=== PATIENT | male | born 1970 | race Caucasian/White ===

== ENCOUNTER 2017-10-02 11:23 | Inpatient (IN) | payer OTHER ==
[2017-10-02 12:28] LABS: ADD MAN DIFF? NO
[2017-10-02 12:31] LABS: BASOPHILS % 0.4 % (0.0-2.0); EOSINOPHILS # 0.3 10^3/ul (0.0-0.5); EOSINOPHILS % 3.9 % (0.0-7.0); HEMATOCRIT 30.2 % (42.0-52.0); HEMOGLOBIN 9.7 g/dl (14.0-18.0); LYMPHOCYTES % 13.6 % (15.0-51.0); MEAN CORPUSCULAR HEMOGLOBIN 29.3 pg (29.0-33.0); MEAN CORPUSCULAR HGB CONC 32.1 g/dl (32.0-37.0); MEAN CORPUSCULAR VOLUME 91.2 fl (82.0-101.0); MEAN PLATELET VOLUME 10.2 fl (7.4-10.4); MONOCYTE # 0.6 10^3/ul (0.3-0.9); MONOCYTES % 8.3 % (0.0-11.0); NEUTROPHIL # 5.2 10^3/ul (1.6-7.5); NEUTROPHILS % 73.7 % (39.0-77.0); PLATELET COUNT 269 10^3/UL (140-415); RED BLOOD COUNT 3.31 10^6/ul (4.70-6.10)
[2017-10-02] MEDS: NITROGLYCERIN (SL) 0.4 MG TAB SL (12:38)
[2017-10-02] MEDS: ASPIRIN 81 MG TAB PO (12:38)
[2017-10-02] MEDS: FUROSEMIDE 40 MG INJ IV ×2 (12:38→18:40)
[2017-10-02] MEDS: NITROGLYCERIN 2% 1 GM OINT PKT TD (12:39)
[2017-10-02 12:49] LABS: ANION GAP 12 (8-16); BLOOD UREA NITROGEN 37 mg/dl (7-20); CALCIUM 8.7 mg/dl (8.4-10.2); CARBON DIOXIDE 27 mmol/L (21-31); CHLORIDE 107 mmol/L (97-110); CREATININE 1.61 mg/dl (0.61-1.24); GLUCOSE 90 mg/dl (70-220); SODIUM 140 mmol/L (135-144)
[2017-10-02 13:03] LABS: TROPONIN-I 0.015 ng/ml (0.00-0.12)
[2017-10-02 13:07] LABS: POTASSIUM 6.2 mmol/L (3.5-5.1)
[2017-10-02] MEDS: CEFTRIAXONE 1 GM/50 ML (PMX) 50 ML IVPB (13:18)
[2017-10-02] MEDS: NA BICARBONATE 8.4% 50 ML SYG IV (13:20)
[2017-10-02] MEDS: AZITHROMYCIN 500MG/NS (PMX) 250 ML IV (13:23)
[2017-10-02] MEDS: ALBUTEROL 0.5% (NEB) 2.5 MG/0.5 ML AMP INH (13:37)
[2017-10-02 13:47] LABS: LACTIC ACID 0.9 mmol/L (0.5-2.0)
[2017-10-02 14:00] LABS: ALBUMIN 3.1 g/dl (3.3-4.9)
[2017-10-02] MEDS ORDERED: ACETAMINOPHEN 325 MG TAB PO (14:30)
[2017-10-02] MEDS ORDERED: ONDANSETRON 4 MG INJ IV (14:30)
[2017-10-02 14:38] LABS: B-TYPE NATRIURETIC PEPTIDE 15500 PG/ML (0-125)
[2017-10-02] MEDS: NA POLYST SULFON 15 GM/60 ML BTL PO (14:49)
[2017-10-02 15:06] LABS: ADD UMIC YES; UR ASCORBIC ACID NEGATIVE (NEGATIVE); UR BILIRUBIN (Dip) NEGATIVE (NEGATIVE); UR BLOOD (Dip) 1+ mg/dL (NEGATIVE); UR CLARITY CLEAR (CLEAR); UR COLOR YELLOW (YELLOW); UR GLUCOSE (Dip) 1+ mg/dL (NEGATIVE); UR KETONES (Dip) NEGATIVE (NEGATIVE); UR LEUKOCYTE ESTERASE (Dip) NEGATIVE Leu/ul (NEGATIVE); UR NITRITE (Dip) NEGATIVE (NEGATIVE); UR RBC 6 /HPF (0-5); UR SPECIFIC GRAVITY (Dip) 1.009 (1.003-1.030); UR TOTAL PROTEIN (Dip) 3+ mg/dl (NEGATIVE); UR UROBILINOGEN (Dip) NEGATIVE (NEGATIVE); UR WBC 0 /HPF (0-5)
[2017-10-02] MEDS ORDERED: NACL 0.9% 3 ML SYG IV (16:30)
[2017-10-02] MEDS ORDERED: DEXTROSE 50% 50 ML SYRINGE IV ×2 (17:00)
[2017-10-02] MEDS ORDERED: GLUCOSE GEL 15 GRAM TUBE BUCCAL (17:00)
[2017-10-02] MEDS ORDERED: GLUCAGON 1 MG INJ IM (17:00)
[2017-10-02] MEDS ORDERED: GLUCOSE GEL 15 GRAM TUBE PO ×2 (17:00)
[2017-10-02 17:43] LABS: LACTIC ACID 2.3 mmol/L (0.5-2.0)
[2017-10-02] MEDS: INSULIN ASPART [NOVOLOG] 3 ML PEN SC (18:05)
[2017-10-02 18:29] LABS: CREATINE KINASE 495 IU/L (23-200)
[2017-10-02 18:42] LABS: TROPONIN-I 0.016 ng/ml (0.00-0.12)
[2017-10-02 18:44] LABS: CK-MB 5.06 ng/ml (0.0-2.4)
[2017-10-02 20:54] LABS: LACTIC ACID 1.8 mmol/L (0.5-2.0)
[2017-10-02] MEDS: ATORVASTATIN 80 MG TAB PO (20:54)
[2017-10-02] MEDS: INSULIN GLARGINE [LANtus] 3 ML PEN SC (21:00)
[2017-10-02] MEDS: HEPARIN 5,000 UNIT/0.5 ML VIAL SC (22:15)
[2017-10-03 00:20] LABS: CREATINE KINASE 584 IU/L (23-200)
[2017-10-03 00:32] LABS: CK INDEX 0.7; TROPONIN-I 0.023 ng/ml (0.00-0.12)
[2017-10-03 00:34] LABS: CK-MB 4.25 ng/ml (0.0-2.4)
[2017-10-03 06:11] LABS: ADD MAN DIFF? NO
[2017-10-03 06:14] LABS: WHITE BLOOD COUNT 5.7 10^3/ul (4.8-10.8)
[2017-10-03 06:14] LABS: BASOPHILS % 0.5 % (0.0-2.0); EOSINOPHILS # 0.2 10^3/ul (0.0-0.5); EOSINOPHILS % 4.2 % (0.0-7.0); HEMATOCRIT 26.3 % (42.0-52.0); HEMOGLOBIN 8.6 g/dl (14.0-18.0); LYMPHOCYTES # 0.8 10^3/ul (0.8-2.9); LYMPHOCYTES % 14.5 % (15.0-51.0); MEAN CORPUSCULAR HEMOGLOBIN 29.9 pg (29.0-33.0); MEAN CORPUSCULAR HGB CONC 32.7 g/dl (32.0-37.0); MEAN CORPUSCULAR VOLUME 91.3 fl (82.0-101.0); MEAN PLATELET VOLUME 10.5 fl (7.4-10.4); MONOCYTE # 0.6 10^3/ul (0.3-0.9); MONOCYTES % 10.3 % (0.0-11.0); NEUTROPHILS % 70.1 % (39.0-77.0); PLATELET COUNT 228 10^3/UL (140-415); RED BLOOD COUNT 2.88 10^6/ul (4.70-6.10); RED CELL DISTRIBUTION WIDTH 13.2 % (11.5-14.5)
[2017-10-03 06:33] LABS: ANION GAP 12 (8-16); BLOOD UREA NITROGEN 38 mg/dl (7-20); CALCIUM 8.5 mg/dl (8.4-10.2); CARBON DIOXIDE 28 mmol/L (21-31); CHLORIDE 107 mmol/L (97-110); CREATININE 1.74 mg/dl (0.61-1.24); GLUCOSE 60 mg/dl (70-220); POTASSIUM 4.4 mmol/L (3.5-5.1); SODIUM 143 mmol/L (135-144)
[2017-10-03] MEDS: FUROSEMIDE 40 MG INJ IV ×2 (07:04→17:09)
[2017-10-03] MEDS: HEPARIN 5,000 UNIT/0.5 ML VIAL SC ×3 (07:12→22:07)
[2017-10-03] MEDS: INSULIN ASPART [NOVOLOG] 3 ML PEN SC ×4 (08:00→21:00)
[2017-10-03] MEDS: AMLODIPINE 5 MG TAB PO (08:47)
[2017-10-03] MEDS ORDERED: hydrALAzine 20 MG INJ (13:01)
[2017-10-03] MEDS: hydrALAzine 20 MG INJ IV (13:11)
[2017-10-03] MEDS ORDERED: INSULIN GLARGINE [LANtus] 3 ML PEN SC (20:00)
[2017-10-03] MEDS: ATORVASTATIN 80 MG TAB PO (21:04)
[2017-10-03] MEDS: ACETAMINOPHEN 325 MG TAB PO (21:58)
[2017-10-04] MEDS: FUROSEMIDE 40 MG INJ IV ×2 (06:33→17:25)
[2017-10-04] MEDS: HEPARIN 5,000 UNIT/0.5 ML VIAL SC ×3 (06:36→21:59)
[2017-10-04 06:43] LABS: ADD MAN DIFF? NO
[2017-10-04 06:47] LABS: WHITE BLOOD COUNT 4.5 10^3/ul (4.8-10.8)
[2017-10-04 06:47] LABS: BASOPHILS % 0.4 % (0.0-2.0); EOSINOPHILS # 0.4 10^3/ul (0.0-0.5); EOSINOPHILS % 8.2 % (0.0-7.0); HEMATOCRIT 27.6 % (42.0-52.0); LYMPHOCYTES # 0.8 10^3/ul (0.8-2.9); LYMPHOCYTES % 17.5 % (15.0-51.0); MEAN CORPUSCULAR HGB CONC 32.6 g/dl (32.0-37.0); MEAN PLATELET VOLUME 10.6 fl (7.4-10.4); MONOCYTE # 0.4 10^3/ul (0.3-0.9); MONOCYTES % 9.5 % (0.0-11.0); NEUTROPHIL # 2.9 10^3/ul (1.6-7.5); NEUTROPHILS % 64.2 % (39.0-77.0); PLATELET COUNT 226 10^3/UL (140-415); RED CELL DISTRIBUTION WIDTH 13.1 % (11.5-14.5)
[2017-10-04 07:12] LABS: ANION GAP 14 (8-16); BLOOD UREA NITROGEN 41 mg/dl (7-20); CALCIUM 8.6 mg/dl (8.4-10.2); CARBON DIOXIDE 26 mmol/L (21-31); CHLORIDE 104 mmol/L (97-110); CREATININE 1.53 mg/dl (0.61-1.24); GLUCOSE 96 mg/dl (70-220); POTASSIUM 4.7 mmol/L (3.5-5.1); SODIUM 139 mmol/L (135-144)
[2017-10-04 07:14] LABS: MAGNESIUM 1.9 mg/dl (1.7-2.5)
[2017-10-04] MEDS: INSULIN ASPART [NOVOLOG] 3 ML PEN SC ×4 (08:00→21:00)
[2017-10-04] MEDS: AMLODIPINE 5 MG TAB PO (08:22)
[2017-10-04] MEDS: LORATADINE 10 MG TAB PO (14:00)
[2017-10-04] MEDS: FLUTICASONE 0.05% 16 GM NAS SPRAY NASAL ×2 (15:41→21:01)
[2017-10-04] MEDS: ATORVASTATIN 80 MG TAB PO (21:01)
[2017-10-05] MEDS: FUROSEMIDE 40 MG INJ IV ×2 (06:33→17:11)
[2017-10-05] MEDS: HEPARIN 5,000 UNIT/0.5 ML VIAL SC ×3 (06:39→20:56)
[2017-10-05] MEDS: INSULIN ASPART [NOVOLOG] 3 ML PEN SC ×4 (08:00→20:46)
[2017-10-05] MEDS: AMLODIPINE 5 MG TAB PO (08:09)
[2017-10-05] MEDS: LORATADINE 10 MG TAB PO (08:10)
[2017-10-05] MEDS: FLUTICASONE 0.05% 16 GM NAS SPRAY NASAL ×2 (08:10→20:45)
[2017-10-05 08:58] LABS: ANION GAP 15 (8-16); BLOOD UREA NITROGEN 47 mg/dl (7-20); CALCIUM 8.6 mg/dl (8.4-10.2); CARBON DIOXIDE 27 mmol/L (21-31); CHLORIDE 102 mmol/L (97-110); CREATININE 1.85 mg/dl (0.61-1.24); GLUCOSE 85 mg/dl (70-220); POTASSIUM 4.5 mmol/L (3.5-5.1); SODIUM 139 mmol/L (135-144)
[2017-10-05 09:04] LABS: MAGNESIUM 1.9 mg/dl (1.7-2.5)
[2017-10-05 16:28] LABS: ALANINE AMINOTRANSFERASE 45 IU/L (13-69); ALBUMIN 2.6 g/dl (3.3-4.9); ALKALINE PHOSPHATASE 163 IU/L (42-121); ASPARTATE AMINO TRANSFERASE 45 IU/L (15-46); TOTAL PROTEIN 5.6 g/dl (6.1-8.1)
[2017-10-05] MEDS: ALBUMIN HUMAN 25% 100 ML IV ×2 (17:33→20:46)
[2017-10-05 18:43] LABS: SODIUM,URINE RANDOM < 13 mmol/L (30-90)
[2017-10-05 18:43] LABS: CREATININE,URINE RANDOM 174.06 mg/dl (20-370)
[2017-10-05] MEDS: ATORVASTATIN 80 MG TAB PO (20:46)
[2017-10-06] MEDS: FUROSEMIDE 40 MG INJ IV (05:48)
[2017-10-06] MEDS: HEPARIN 5,000 UNIT/0.5 ML VIAL SC ×3 (05:50→20:50)
[2017-10-06] MEDS: INSULIN ASPART [NOVOLOG] 3 ML PEN SC ×4 (08:00→20:42)
[2017-10-06 09:23] LABS: ADD MAN DIFF? NO
[2017-10-06] MEDS: FLUTICASONE 0.05% 16 GM NAS SPRAY NASAL ×2 (09:25→20:39)
[2017-10-06] MEDS: LORATADINE 10 MG TAB PO (09:25)
[2017-10-06] MEDS: AMLODIPINE 5 MG TAB PO (09:26)
[2017-10-06 09:28] LABS: BASOPHILS % 0.7 % (0.0-2.0); EOSINOPHILS # 0.2 10^3/ul (0.0-0.5); EOSINOPHILS % 4.1 % (0.0-7.0); HEMATOCRIT 27.9 % (42.0-52.0); HEMOGLOBIN 9.1 g/dl (14.0-18.0); LYMPHOCYTES # 0.7 10^3/ul (0.8-2.9); LYMPHOCYTES % 16.5 % (15.0-51.0); MEAN CORPUSCULAR HEMOGLOBIN 29.8 pg (29.0-33.0); MEAN CORPUSCULAR HGB CONC 32.6 g/dl (32.0-37.0); MEAN CORPUSCULAR VOLUME 91.5 fl (82.0-101.0); MEAN PLATELET VOLUME 10.6 fl (7.4-10.4); MONOCYTE # 0.5 10^3/ul (0.3-0.9); MONOCYTES % 10.5 % (0.0-11.0); PLATELET COUNT 235 10^3/UL (140-415); RED BLOOD COUNT 3.05 10^6/ul (4.70-6.10); RED CELL DISTRIBUTION WIDTH 13.2 % (11.5-14.5)
[2017-10-06 09:28] LABS: WHITE BLOOD COUNT 4.4 10^3/ul (4.8-10.8)
[2017-10-06 09:56] LABS: ALANINE AMINOTRANSFERASE 53 IU/L (13-69); ALBUMIN 3.2 g/dl (3.3-4.9); ALBUMIN/GLOBULIN RATIO 1.23; ALKALINE PHOSPHATASE 167 IU/L (42-121); ANION GAP 13 (8-16); ASPARTATE AMINO TRANSFERASE 54 IU/L (15-46); BILIRUBIN,INDIRECT 0.4 mg/dl (0-1.1); BILIRUBIN,TOTAL 0.4 mg/dl (0.2-1.3); BLOOD UREA NITROGEN 63 mg/dl (7-20); CALCIUM 8.7 mg/dl (8.4-10.2); CARBON DIOXIDE 27 mmol/L (21-31); CHLORIDE 102 mmol/L (97-110); CREATININE 2.12 mg/dl (0.61-1.24); GLUCOSE 100 mg/dl (70-220); POTASSIUM 5.1 mmol/L (3.5-5.1); SODIUM 137 mmol/L (135-144); TOTAL PROTEIN 5.8 g/dl (6.1-8.1)
[2017-10-06 09:56] LABS: PHOSPHORUS 4.9 mg/dl (2.5-4.9)
[2017-10-06 10:05] LABS: INR 1.07; PT RATIO 1.1
[2017-10-06 10:06] LABS: PARTIAL THROMBOPLASTIN TIME 28.3 Sec (25.0-35.0)
[2017-10-06 10:14] LABS: CHOLESTEROL 101 mg/dl (100-200)
[2017-10-06 10:14] LABS: CHOL/HDL RATIO 1.8 RATIO; HDL CHOLESTEROL 54 mg/dl (28-71); LDL CHOLESTEROL,CALCULATED 37 mg/dl; TRIGLYCERIDES 48 mg/dl (0-149)
[2017-10-06] MEDS: ALBUMIN HUMAN 25% 100 ML IV (17:22)
[2017-10-06] MEDS: FUROSEMIDE 20 MG INJ IV (17:22)
[2017-10-06 18:21] LABS: HEMOGLOBIN A1C 6.8 % (0-5.9)
[2017-10-06] MEDS: ATORVASTATIN 80 MG TAB PO (20:40)
[2017-10-07] MEDS: FUROSEMIDE 20 MG INJ IV ×2 (05:32→17:33)
[2017-10-07] MEDS: ALBUMIN HUMAN 25% 100 ML IV ×2 (05:32→17:33)
[2017-10-07] MEDS: HEPARIN 5,000 UNIT/0.5 ML VIAL SC ×3 (05:42→21:55)
[2017-10-07] MEDS: INSULIN ASPART [NOVOLOG] 3 ML PEN SC ×4 (08:00→21:00)
[2017-10-07] MEDS: FLUTICASONE 0.05% 16 GM NAS SPRAY NASAL (09:10)
[2017-10-07] MEDS: LORATADINE 10 MG TAB PO (09:10)
[2017-10-07] MEDS: AMLODIPINE 5 MG TAB PO (09:11)
[2017-10-07 09:25] LABS: ADD MAN DIFF? NO
[2017-10-07 09:35] LABS: WHITE BLOOD COUNT 3.9 10^3/ul (4.8-10.8)
[2017-10-07 09:35] LABS: BASOPHILS % 0.5 % (0.0-2.0); EOSINOPHILS # 0.2 10^3/ul (0.0-0.5); EOSINOPHILS % 4.6 % (0.0-7.0); HEMATOCRIT 26.4 % (42.0-52.0); HEMOGLOBIN 8.6 g/dl (14.0-18.0); LYMPHOCYTES # 0.7 10^3/ul (0.8-2.9); LYMPHOCYTES % 18.3 % (15.0-51.0); MEAN CORPUSCULAR HEMOGLOBIN 29.6 pg (29.0-33.0); MEAN CORPUSCULAR HGB CONC 32.6 g/dl (32.0-37.0); MEAN CORPUSCULAR VOLUME 90.7 fl (82.0-101.0); MEAN PLATELET VOLUME 11.1 fl (7.4-10.4); MONOCYTE # 0.4 10^3/ul (0.3-0.9); NEUTROPHIL # 2.6 10^3/ul (1.6-7.5); NEUTROPHILS % 66.3 % (39.0-77.0); PLATELET COUNT 234 10^3/UL (140-415); RED BLOOD COUNT 2.91 10^6/ul (4.70-6.10); RED CELL DISTRIBUTION WIDTH 13.2 % (11.5-14.5)
[2017-10-07 11:59] LABS: PHOSPHORUS 4.7 mg/dl (2.5-4.9)
[2017-10-07 11:59] LABS: MAGNESIUM 2.2 mg/dl (1.7-2.5)
[2017-10-07 12:16] LABS: ANION GAP 17 (8-16); BLOOD UREA NITROGEN 75 mg/dl (7-20); CARBON DIOXIDE 26 mmol/L (21-31); CHLORIDE 98 mmol/L (97-110); CREATININE 1.93 mg/dl (0.61-1.24); GLUCOSE 85 mg/dl (70-220); POTASSIUM 5.5 mmol/L (3.5-5.1); SODIUM 135 mmol/L (135-144)
[2017-10-07] MEDS: ATORVASTATIN 80 MG TAB PO (21:51)
[2017-10-08] MEDS: ACETAMINOPHEN 325 MG TAB PO (02:11)
[2017-10-08] MEDS: FUROSEMIDE 20 MG TAB PO (05:59)
[2017-10-08] MEDS ORDERED: FUROSEMIDE 20 MG TAB PO (06:00)
[2017-10-08] MEDS: HEPARIN 5,000 UNIT/0.5 ML VIAL SC ×3 (06:04→22:13)
[2017-10-08] MEDS: INSULIN ASPART [NOVOLOG] 3 ML PEN SC ×4 (08:00→21:00)
[2017-10-08 08:25] LABS: ADD MAN DIFF? NO
[2017-10-08 08:32] LABS: BASOPHILS % 0.2 % (0.0-2.0); EOSINOPHILS # 0.1 10^3/ul (0.0-0.5); EOSINOPHILS % 2.8 % (0.0-7.0); HEMATOCRIT 26.6 % (42.0-52.0); HEMOGLOBIN 8.9 g/dl (14.0-18.0); LYMPHOCYTES # 0.7 10^3/ul (0.8-2.9); LYMPHOCYTES % 14.9 % (15.0-51.0); MEAN CORPUSCULAR HEMOGLOBIN 30.3 pg (29.0-33.0); MEAN CORPUSCULAR HGB CONC 33.5 g/dl (32.0-37.0); MEAN CORPUSCULAR VOLUME 90.5 fl (82.0-101.0); MEAN PLATELET VOLUME 11.1 fl (7.4-10.4); MONOCYTE # 0.5 10^3/ul (0.3-0.9); MONOCYTES % 9.6 % (0.0-11.0); NEUTROPHIL # 3.4 10^3/ul (1.6-7.5); NEUTROPHILS % 72.1 % (39.0-77.0); PLATELET COUNT 248 10^3/UL (140-415); RED BLOOD COUNT 2.94 10^6/ul (4.70-6.10); RED CELL DISTRIBUTION WIDTH 13.2 % (11.5-14.5)
[2017-10-08 08:32] LABS: WHITE BLOOD COUNT 4.7 10^3/ul (4.8-10.8)
[2017-10-08 08:56] LABS: ANION GAP 17 (8-16); BLOOD UREA NITROGEN 85 mg/dl (7-20); CARBON DIOXIDE 26 mmol/L (21-31); CHLORIDE 97 mmol/L (97-110); CREATININE 2.07 mg/dl (0.61-1.24); GLUCOSE 109 mg/dl (70-220); POTASSIUM 5.4 mmol/L (3.5-5.1); SODIUM 135 mmol/L (135-144)
[2017-10-08 08:57] LABS: PHOSPHORUS 5.2 mg/dl (2.5-4.9)
[2017-10-08 08:57] LABS: MAGNESIUM 2.3 mg/dl (1.7-2.5)
[2017-10-08] MEDS: AMLODIPINE 5 MG TAB PO ×2 (10:02→20:53)
[2017-10-08] MEDS: BUMETANIDE 12 MG in DEXTROSE 5% 72 ML IV (13:57)
[2017-10-08] MEDS: ATORVASTATIN 80 MG TAB PO (20:52)
[2017-10-09] MEDS: HEPARIN 5,000 UNIT/0.5 ML VIAL SC ×3 (05:41→22:00)
[2017-10-09 07:11] LABS: ADD MAN DIFF? NO
[2017-10-09 07:16] LABS: BASOPHILS % 0.4 % (0.0-2.0); EOSINOPHILS # 0.2 10^3/ul (0.0-0.5); EOSINOPHILS % 3.6 % (0.0-7.0); HEMATOCRIT 27.3 % (42.0-52.0); HEMOGLOBIN 8.9 g/dl (14.0-18.0); LYMPHOCYTES # 0.9 10^3/ul (0.8-2.9); LYMPHOCYTES % 16.6 % (15.0-51.0); MEAN CORPUSCULAR HEMOGLOBIN 29.7 pg (29.0-33.0); MEAN CORPUSCULAR HGB CONC 32.6 g/dl (32.0-37.0); MEAN PLATELET VOLUME 11.1 fl (7.4-10.4); MONOCYTE # 0.5 10^3/ul (0.3-0.9); MONOCYTES % 10.1 % (0.0-11.0); NEUTROPHIL # 3.6 10^3/ul (1.6-7.5); NEUTROPHILS % 69.1 % (39.0-77.0); PLATELET COUNT 277 10^3/UL (140-415); RED CELL DISTRIBUTION WIDTH 13.2 % (11.5-14.5)
[2017-10-09 07:16] LABS: WHITE BLOOD COUNT 5.3 10^3/ul (4.8-10.8)
[2017-10-09 07:37] LABS: INR 1.05; PROTIME 13.8 Sec (11.9-14.9); PT RATIO 1.1
[2017-10-09 07:38] LABS: PARTIAL THROMBOPLASTIN TIME 29.3 Sec (25.0-35.0)
[2017-10-09 07:46] LABS: ALANINE AMINOTRANSFERASE 55 IU/L (13-69); ALBUMIN 3.3 g/dl (3.3-4.9); ALBUMIN/GLOBULIN RATIO 1.26; ALKALINE PHOSPHATASE 163 IU/L (42-121); ANION GAP 12 (8-16); ASPARTATE AMINO TRANSFERASE 43 IU/L (15-46); BILIRUBIN,INDIRECT 0.2 mg/dl (0-1.1); BILIRUBIN,TOTAL 0.2 mg/dl (0.2-1.3); BLOOD UREA NITROGEN 88 mg/dl (7-20); CARBON DIOXIDE 30 mmol/L (21-31); CHLORIDE 100 mmol/L (97-110); GLUCOSE 98 mg/dl (70-220); POTASSIUM 4.8 mmol/L (3.5-5.1); SODIUM 137 mmol/L (135-144); TOTAL PROTEIN 5.9 g/dl (6.1-8.1)
[2017-10-09 07:48] LABS: MAGNESIUM 2.2 mg/dl (1.7-2.5)
[2017-10-09 07:48] LABS: PHOSPHORUS 5.2 mg/dl (2.5-4.9)
[2017-10-09] MEDS: INSULIN ASPART [NOVOLOG] 3 ML PEN SC ×4 (08:00→21:00)
[2017-10-09] MEDS ORDERED: BUMETANIDE 1 MG INJ IV (08:30)
[2017-10-09] MEDS ORDERED: BUMETANIDE 2 MG in SOD CHLORIDE 0.9% 25 ML IV (09:00)
[2017-10-09] MEDS ORDERED: ALBUMIN HUMAN 25% 100 ML IV (09:00)
[2017-10-09] MEDS ORDERED: BUMETANIDE 2 MG in DEXTROSE 5% 17 ML IV (09:00)
[2017-10-09] MEDS: AMLODIPINE 5 MG TAB PO ×2 (10:06→21:22)
[2017-10-09] MEDS: BUMETANIDE 2 MG in SOD CHLORIDE 0.9% 25 ML IV ×2 (10:07→18:30)
[2017-10-09] MEDS: SILDENAFIL 20 MG TAB PO ×2 (14:01→21:22)
[2017-10-09 14:27] LABS: HAAIG REFLEX REFLEX FILED
[2017-10-09] MEDS ORDERED: HEPARIN 1000 UNITS/ML 10 ML INJ (15:30)
[2017-10-09] MEDS ORDERED: LIDOCAINE 1% (MDV) 20 ML INJ (15:30)
[2017-10-09] MEDS ORDERED: HEPARIN 1000 UNITS/NS (A-LINE) 1,000 ML (15:30)
[2017-10-09 15:31] LABS: C-REACTIVE PROTEIN 0.6 mg/dl (0.0-0.9)
[2017-10-09 15:31] LABS: HEPATITIS B SURFACE ANTIGEN NEGATIVE (NEGATIVE)
[2017-10-09 15:38] LABS: ERYTHROCYTE SEDIMENTATION RATE 38 mm/Hr (0-15)
[2017-10-09 15:42] LABS: HEPATITIS B CORE ANTIBODY NEGATIVE (NEGATIVE); HEPATITIS C VIRAL ANTIBODY NEGATIVE (NEGATIVE); HIV 1&2 ANTIBODY NEGATIVE (NEGATIVE)
[2017-10-09] MEDS ORDERED: HEPARIN 1000 UNITS/ML 10 ML INJ CATHETER (18:00)
[2017-10-09] MEDS: ALBUMIN HUMAN 25% 100 ML IV (18:30)
[2017-10-09] MEDS: ATORVASTATIN 80 MG TAB PO (21:21)
[2017-10-10] MEDS: ALBUMIN HUMAN 25% 100 ML IV ×2 (06:24→17:48)
[2017-10-10] MEDS: HEPARIN 5,000 UNIT/0.5 ML VIAL SC ×3 (06:31→22:17)
[2017-10-10] MEDS: BUMETANIDE 2 MG in SOD CHLORIDE 0.9% 25 ML IV ×2 (06:35→17:49)
[2017-10-10 07:48] LABS: ADD MAN DIFF? NO
[2017-10-10 07:55] LABS: BASOPHILS % 0.3 % (0.0-2.0); EOSINOPHILS # 0.1 10^3/ul (0.0-0.5); EOSINOPHILS % 1.8 % (0.0-7.0); HEMOGLOBIN 8.9 g/dl (14.0-18.0); LYMPHOCYTES # 0.6 10^3/ul (0.8-2.9); LYMPHOCYTES % 10.1 % (15.0-51.0); MEAN CORPUSCULAR HEMOGLOBIN 29.9 pg (29.0-33.0); MEAN CORPUSCULAR VOLUME 90.6 fl (82.0-101.0); MEAN PLATELET VOLUME 11.2 fl (7.4-10.4); MONOCYTE # 0.5 10^3/ul (0.3-0.9); MONOCYTES % 8.7 % (0.0-11.0); NEUTROPHIL # 4.7 10^3/ul (1.6-7.5); NEUTROPHILS % 78.9 % (39.0-77.0); PLATELET COUNT 271 10^3/UL (140-415); RED BLOOD COUNT 2.98 10^6/ul (4.70-6.10); RED CELL DISTRIBUTION WIDTH 13.5 % (11.5-14.5)
[2017-10-10 08:06] LABS: INR 1.07; PT RATIO 1.1
[2017-10-10 08:07] LABS: PARTIAL THROMBOPLASTIN TIME 28.8 Sec (25.0-35.0)
[2017-10-10] MEDS: INSULIN ASPART [NOVOLOG] 3 ML PEN SC ×4 (08:07→21:00)
[2017-10-10 08:10] LABS: MAGNESIUM 2.2 mg/dl (1.7-2.5)
[2017-10-10 08:10] LABS: PHOSPHORUS 4.7 mg/dl (2.5-4.9)
[2017-10-10 08:11] LABS: ANION GAP 15 (8-16); BLOOD UREA NITROGEN 84 mg/dl (7-20); CALCIUM 8.9 mg/dl (8.4-10.2); CARBON DIOXIDE 26 mmol/L (21-31); CHLORIDE 101 mmol/L (97-110); CREATININE 2.16 mg/dl (0.61-1.24); GLUCOSE 119 mg/dl (70-220); POTASSIUM 4.8 mmol/L (3.5-5.1); SODIUM 137 mmol/L (135-144)
[2017-10-10] MEDS: AMLODIPINE 5 MG TAB PO (08:26)
[2017-10-10] MEDS: SILDENAFIL 20 MG TAB PO ×2 (08:27→20:59)
[2017-10-10] MEDS: ATORVASTATIN 80 MG TAB PO (20:58)
[2017-10-10] MEDS: LISINOPRIL 5 MG TAB PO (21:02)
[2017-10-11] MEDS: BUMETANIDE 2 MG in SOD CHLORIDE 0.9% 25 ML IV ×2 (05:14→17:23)
[2017-10-11] MEDS: ALBUMIN HUMAN 25% 100 ML IV ×2 (05:16→17:25)
[2017-10-11] MEDS: HEPARIN 5,000 UNIT/0.5 ML VIAL SC ×3 (05:18→22:31)
[2017-10-11 06:52] LABS: ADD MAN DIFF? NO
[2017-10-11 06:59] LABS: ABNORMAL IP MESSAGE 1; BASOPHILS % 0.4 % (0.0-2.0); EOSINOPHILS # 0.2 10^3/ul (0.0-0.5); EOSINOPHILS % 3.8 % (0.0-7.0); HEMATOCRIT 25.8 % (42.0-52.0); HEMOGLOBIN 8.4 g/dl (14.0-18.0); LYMPHOCYTES # 0.6 10^3/ul (0.8-2.9); LYMPHOCYTES % 11.2 % (15.0-51.0); MEAN CORPUSCULAR HEMOGLOBIN 29.7 pg (29.0-33.0); MEAN CORPUSCULAR HGB CONC 32.6 g/dl (32.0-37.0); MEAN CORPUSCULAR VOLUME 91.2 fl (82.0-101.0); MEAN PLATELET VOLUME 11.6 fl (7.4-10.4); MONOCYTE # 0.4 10^3/ul (0.3-0.9); NEUTROPHIL # 3.8 10^3/ul (1.6-7.5); NEUTROPHILS % 76.2 % (39.0-77.0); PLATELET COUNT 247 10^3/UL (140-415); POSITIVE DIFF @See below; RED BLOOD COUNT 2.83 10^6/ul (4.70-6.10); RED CELL DISTRIBUTION WIDTH 13.7 % (11.5-14.5)
[2017-10-11 07:28] LABS: ANION GAP 18 (8-16); BLOOD UREA NITROGEN 95 mg/dl (7-20); CALCIUM 9.3 mg/dl (8.4-10.2); CARBON DIOXIDE 26 mmol/L (21-31); CHLORIDE 99 mmol/L (97-110); CREATININE 2.55 mg/dl (0.61-1.24); GLUCOSE 113 mg/dl (70-220); SODIUM 138 mmol/L (135-144)
[2017-10-11] MEDS: INSULIN ASPART [NOVOLOG] 3 ML PEN SC ×4 (08:00→21:00)
[2017-10-11] MEDS: SILDENAFIL 20 MG TAB PO ×2 (08:48→21:00)
[2017-10-11] MEDS: LISINOPRIL 5 MG TAB PO (08:50)
[2017-10-11] MEDS ORDERED: EPOETIN 10000 UNITS/ML (NON ESRD/NON ONCOLOGY) SC (14:30)
[2017-10-11] MEDS ORDERED: EPOETIN ALFA (NESRD) 3,000 UNITS/ML VIAL SC (14:30)
[2017-10-11] MEDS: NIFEdipine (XL) 60 MG TAB PO (15:04)
[2017-10-11] MEDS: EPOETIN ALFA 1,000 UNITS/0.1 ML VIAL SC (17:27)
[2017-10-11] MEDS: LISINOPRIL 10 MG TAB PO (21:00)
[2017-10-11] MEDS: ATORVASTATIN 80 MG TAB PO (22:25)
[2017-10-11] MEDS: ATROPINE 1 MG INJ IV (23:23)
[2017-10-12] LABS: ANION GAP 17 (8-16); BLOOD UREA NITROGEN 107 mg/dl (7-20); CALCIUM 9.2 mg/dl (8.4-10.2); CARBON DIOXIDE 26 mmol/L (21-31); CHLORIDE 99 mmol/L (97-110); CREATININE 2.85 mg/dl (0.61-1.24); GLUCOSE 154 mg/dl (70-220); MAGNESIUM 2.4 mg/dl (1.7-2.5); POTASSIUM 5.5 mmol/L (3.5-5.1); SODIUM 136 mmol/L (135-144)
[2017-10-12 00:12] LABS: TROPONIN-I 0.015 ng/ml (0.00-0.12)
[2017-10-12 05:25] LABS: ADD MAN DIFF? NO
[2017-10-12 05:28] LABS: ABNORMAL IP MESSAGE 1; BASOPHILS % 0.2 % (0.0-2.0); EOSINOPHILS % 0.9 % (0.0-7.0); HEMATOCRIT 25.9 % (42.0-52.0); HEMOGLOBIN 8.5 g/dl (14.0-18.0); LYMPHOCYTES # 0.5 10^3/ul (0.8-2.9); LYMPHOCYTES % 11.2 % (15.0-51.0); MEAN CORPUSCULAR HEMOGLOBIN 30.2 pg (29.0-33.0); MEAN CORPUSCULAR HGB CONC 32.8 g/dl (32.0-37.0); MEAN CORPUSCULAR VOLUME 92.2 fl (82.0-101.0); MEAN PLATELET VOLUME 11.7 fl (7.4-10.4); MONOCYTE # 0.4 10^3/ul (0.3-0.9); MONOCYTES % 8.4 % (0.0-11.0); NEUTROPHIL # 3.4 10^3/ul (1.6-7.5); NEUTROPHILS % 78.8 % (39.0-77.0); PLATELET COUNT 267 10^3/UL (140-415); POSITIVE DIFF @See below; RED BLOOD COUNT 2.81 10^6/ul (4.70-6.10); RED CELL DISTRIBUTION WIDTH 14.1 % (11.5-14.5)
[2017-10-12 05:28] LABS: WHITE BLOOD COUNT 4.3 10^3/ul (4.8-10.8)
[2017-10-12 06:02] LABS: ANION GAP 18 (8-16); BLOOD UREA NITROGEN 107 mg/dl (7-20); CALCIUM 9.4 mg/dl (8.4-10.2); CARBON DIOXIDE 26 mmol/L (21-31); CHLORIDE 97 mmol/L (97-110); CREATININE 3.13 mg/dl (0.61-1.24); GLUCOSE 126 mg/dl (70-220); POTASSIUM 5.5 mmol/L (3.5-5.1); SODIUM 135 mmol/L (135-144)
[2017-10-12] MEDS: ALBUMIN HUMAN 25% 100 ML IV ×2 (06:18→18:13)
[2017-10-12] MEDS: BUMETANIDE 2 MG in SOD CHLORIDE 0.9% 25 ML IV ×2 (06:19→18:12)
[2017-10-12] MEDS: HEPARIN 5,000 UNIT/0.5 ML VIAL SC ×3 (06:20→22:10)
[2017-10-12] MEDS: INSULIN ASPART [NOVOLOG] 3 ML PEN SC ×4 (08:15→21:00)
[2017-10-12] MEDS ORDERED: NIFEdipine (XL) 60 MG TAB PO (09:00)
[2017-10-12] MEDS ORDERED: ALBUMIN HUMAN 25% 50 ML IV (10:00)
[2017-10-12] MEDS: HEPARIN 1000 UNITS/ML 10 ML INJ CATHETER (11:35)
[2017-10-12] MEDS: ATORVASTATIN 80 MG TAB PO (21:29)
[2017-10-13] MEDS: ALBUMIN HUMAN 25% 100 ML IV ×2 (06:03→17:57)
[2017-10-13] MEDS: HEPARIN 5,000 UNIT/0.5 ML VIAL SC ×3 (06:13→22:31)
[2017-10-13] MEDS: INSULIN ASPART [NOVOLOG] 3 ML PEN SC ×4 (07:55→20:49)
[2017-10-13] MEDS: BUMETANIDE 2 MG in SOD CHLORIDE 0.9% 25 ML IV ×2 (08:16→17:59)
[2017-10-13 11:52] LABS: ANION GAP 19 (8-16); BLOOD UREA NITROGEN 88 mg/dl (7-20); CALCIUM 9.5 mg/dl (8.4-10.2); CARBON DIOXIDE 26 mmol/L (21-31); CHLORIDE 97 mmol/L (97-110); CREATININE 2.88 mg/dl (0.61-1.24); GLUCOSE 140 mg/dl (70-220); POTASSIUM 4.6 mmol/L (3.5-5.1); SODIUM 137 mmol/L (135-144)
[2017-10-13 13:28] LABS: ANA SCREEN NEGATIVE (NEGATIVE)
[2017-10-13 14:12] LABS: ANCA SCREEN NEGATIVE (NEGATIVE)
[2017-10-13 16:26] LABS: MYELOPEROXIDASE ANTIBODY <1.0 AI; PROTEINASE-3 ANTIBODY <1.0 AI
[2017-10-13] MEDS: hydrALAzine 20 MG INJ IV (16:33)
[2017-10-13] MEDS: BUPROPION (SR) 100 MG TAB PO (18:59)
[2017-10-13] MEDS: ATORVASTATIN 80 MG TAB PO (22:25)
[2017-10-14] MEDS: BUMETANIDE 2 MG in SOD CHLORIDE 0.9% 25 ML IV ×3 (06:00→17:35)
[2017-10-14] MEDS: ALBUMIN HUMAN 25% 100 ML IV ×2 (07:05→17:13)
[2017-10-14] MEDS: HEPARIN 5,000 UNIT/0.5 ML VIAL SC ×3 (07:10→20:11)
[2017-10-14] MEDS: INSULIN ASPART [NOVOLOG] 3 ML PEN SC ×4 (07:55→20:10)
[2017-10-14 08:20] LABS: ADD MAN DIFF? NO
[2017-10-14 08:23] LABS: WHITE BLOOD COUNT 6.2 10^3/ul (4.8-10.8)
[2017-10-14 08:23] LABS: BASOPHILS % 0.5 % (0.0-2.0); EOSINOPHILS # 0.2 10^3/ul (0.0-0.5); EOSINOPHILS % 3.2 % (0.0-7.0); HEMATOCRIT 27.8 % (42.0-52.0); LYMPHOCYTES # 0.9 10^3/ul (0.8-2.9); LYMPHOCYTES % 14.5 % (15.0-51.0); MEAN CORPUSCULAR HEMOGLOBIN 29.6 pg (29.0-33.0); MEAN CORPUSCULAR HGB CONC 32.4 g/dl (32.0-37.0); MEAN CORPUSCULAR VOLUME 91.4 fl (82.0-101.0); MEAN PLATELET VOLUME 11.2 fl (7.4-10.4); MONOCYTE # 0.9 10^3/ul (0.3-0.9); MONOCYTES % 14.2 % (0.0-11.0); NEUTROPHIL # 4.2 10^3/ul (1.6-7.5); NEUTROPHILS % 67.3 % (39.0-77.0); PLATELET COUNT 251 10^3/UL (140-415); RED BLOOD COUNT 3.04 10^6/ul (4.70-6.10); RED CELL DISTRIBUTION WIDTH 14.6 % (11.5-14.5)
[2017-10-14 08:42] LABS: ALANINE AMINOTRANSFERASE 42 IU/L (13-69); ALBUMIN 3.9 g/dl (3.3-4.9); ALBUMIN/GLOBULIN RATIO 1.62; ALKALINE PHOSPHATASE 116 IU/L (42-121); ANION GAP 16 (8-16); ASPARTATE AMINO TRANSFERASE 36 IU/L (15-46); BILIRUBIN,INDIRECT 0.5 mg/dl (0-1.1); BILIRUBIN,TOTAL 0.5 mg/dl (0.2-1.3); BLOOD UREA NITROGEN 87 mg/dl (7-20); CALCIUM 9.6 mg/dl (8.4-10.2); CARBON DIOXIDE 27 mmol/L (21-31); CHLORIDE 100 mmol/L (97-110); CREATININE 2.77 mg/dl (0.61-1.24); GLUCOSE 81 mg/dl (70-220); POTASSIUM 4.1 mmol/L (3.5-5.1); SODIUM 139 mmol/L (135-144); TOTAL PROTEIN 6.3 g/dl (6.1-8.1)
[2017-10-14 08:52] LABS: INR 1.25; PROTIME 15.9 Sec (11.9-14.9); PT RATIO 1.2
[2017-10-14 08:53] LABS: PARTIAL THROMBOPLASTIN TIME 33.7 Sec (25.0-35.0)
[2017-10-14] MEDS: NIFEdipine (XL) 60 MG TAB PO (10:09)
[2017-10-14] MEDS: LISINOPRIL 20 MG TAB PO ×2 (10:10→20:10)
[2017-10-14] MEDS: LOPERAMIDE 2 MG CAP PO (11:12)
[2017-10-14 11:44] LABS: COLLECTION PERIOD 24 hrs
[2017-10-14 13:02] LABS: VOLUME 2500 mls
[2017-10-14 13:19] LABS: COLLECTION PERIOD 24 hrs; CREATININE CLEARANCE 28.6 mls/min (84.0-162.0); CREATININE,URINE RANDOM 45.62 mg/dl (20-370); SCRET 2.77 mg/dl (0.61-1.24); VOLUME 2500 ml/24hrs
[2017-10-14] MEDS: ATORVASTATIN 80 MG TAB PO (20:12)
[2017-10-14] MEDS ORDERED: DIPHENHYDRAMINE 50 MG INJ IV (21:00)
[2017-10-14] MEDS ORDERED: hydrALAzine 20 MG INJ IV (21:00)
[2017-10-14] MEDS ORDERED: MEPERIDINE 25 MG INJ IV (21:00)
[2017-10-14] MEDS ORDERED: LABETALOL HCL 20MG INJ IV (21:00)
[2017-10-14] MEDS ORDERED: ONDANSETRON 4 MG INJ IV (21:00)
[2017-10-14] MEDS ORDERED: FENTAnyl 50 MCG/ML VIAL IV ×3 (21:00)
[2017-10-14] MEDS ORDERED: MIDAZOLAM 1 MG/ML 2 ML INJ IV (21:00)
[2017-10-14] MEDS ORDERED: EPHEDrine SULFATE 50 MG/5 ML SYG IV (21:00)
[2017-10-14] MEDS ORDERED: METOCLOPRAMIDE 10 MG INJ IV (21:00)
[2017-10-14] MEDS ORDERED: MIDAZOLAM 1 MG/ML 2 ML INJ (21:47)
[2017-10-14] MEDS ORDERED: PROPOFOL 0 ML (21:47)
[2017-10-14] MEDS ORDERED: FENTAnyl 50 MCG/ML VIAL (21:47)
[2017-10-14] MEDS ORDERED: CEFAZOLIN 1 GM INJ (21:51)
[2017-10-14] MEDS: LIDOCAINE 1% (MPF) 30 ML INJ (21:55)
[2017-10-14] MEDS: HEPARIN 1000 UNITS/ML 10 ML INJ ×2 (21:55→22:00)
[2017-10-14] MEDS: BUPIVACAINE 0.5% (SDV) 30 ML INJ (21:55)
[2017-10-14] MEDS: IOHEXOL 300MG/ML 30 ML BTL IV (22:28)
[2017-10-15] MEDS: HEPARIN 5,000 UNIT/0.5 ML VIAL SC ×3 (06:00→22:00)
[2017-10-15] MEDS: ALBUMIN HUMAN 25% 100 ML IV ×2 (06:21→18:00)
[2017-10-15] MEDS: BUMETANIDE 2 MG in SOD CHLORIDE 0.9% 25 ML IV ×2 (06:21→18:00)
[2017-10-15] MEDS: INSULIN ASPART [NOVOLOG] 3 ML PEN SC ×4 (07:55→21:00)
[2017-10-15] MEDS: LISINOPRIL 20 MG TAB PO ×2 (09:00→21:00)
[2017-10-15] MEDS: HEPARIN 1000 UNITS/ML 10 ML INJ CATHETER (11:35)
[2017-10-15] MEDS: NIFEdipine (XL) 60 MG TAB PO (12:40)
[2017-10-15] MEDS: ACETAMINOPHEN 325 MG TAB PO (16:51)
[2017-10-15] MEDS: HYDROCODONE/APAP (5/325) TAB PO (17:29)
[2017-10-15 20:24] LABS: ADD MAN DIFF? NO
[2017-10-15 20:25] LABS: WHITE BLOOD COUNT 7.7 10^3/ul (4.8-10.8)
[2017-10-15 20:25] LABS: BASOPHILS % 0.3 % (0.0-2.0); EOSINOPHILS # 0.2 10^3/ul (0.0-0.5); EOSINOPHILS % 2.8 % (0.0-7.0); HEMATOCRIT 26.5 % (42.0-52.0); HEMOGLOBIN 8.7 g/dl (14.0-18.0); LYMPHOCYTES # 0.7 10^3/ul (0.8-2.9); LYMPHOCYTES % 8.9 % (15.0-51.0); MEAN CORPUSCULAR HEMOGLOBIN 30.2 pg (29.0-33.0); MEAN CORPUSCULAR HGB CONC 32.8 g/dl (32.0-37.0); MONOCYTE # 0.8 10^3/ul (0.3-0.9); MONOCYTES % 10.6 % (0.0-11.0); PLATELET COUNT 248 10^3/UL (140-415); RED BLOOD COUNT 2.88 10^6/ul (4.70-6.10); RED CELL DISTRIBUTION WIDTH 14.7 % (11.5-14.5)
[2017-10-15] MEDS: ATORVASTATIN 80 MG TAB PO (22:13)
[2017-10-16] MEDS: HEPARIN 5,000 UNIT/0.5 ML VIAL SC (06:00)
[2017-10-16] MEDS: ALBUMIN HUMAN 25% 100 ML IV (06:10)
[2017-10-16] MEDS: BUMETANIDE 2 MG in SOD CHLORIDE 0.9% 25 ML IV (06:10)
[2017-10-16] MEDS: INSULIN ASPART [NOVOLOG] 3 ML PEN SC (07:55)
[2017-10-16 08:33] LABS: ADD MAN DIFF? NO
[2017-10-16 08:37] LABS: BASOPHILS % 0.1 % (0.0-2.0); EOSINOPHILS # 0.4 10^3/ul (0.0-0.5); EOSINOPHILS % 4.8 % (0.0-7.0); HEMOGLOBIN 8.2 g/dl (14.0-18.0); LYMPHOCYTES # 0.9 10^3/ul (0.8-2.9); LYMPHOCYTES % 12.4 % (15.0-51.0); MEAN CORPUSCULAR HGB CONC 32.8 g/dl (32.0-37.0); MEAN CORPUSCULAR VOLUME 91.6 fl (82.0-101.0); MEAN PLATELET VOLUME 11.6 fl (7.4-10.4); MONOCYTE # 0.9 10^3/ul (0.3-0.9); MONOCYTES % 12.4 % (0.0-11.0); NEUTROPHIL # 5.1 10^3/ul (1.6-7.5); NEUTROPHILS % 69.9 % (39.0-77.0); PLATELET COUNT 232 10^3/UL (140-415); RED BLOOD COUNT 2.73 10^6/ul (4.70-6.10); RED CELL DISTRIBUTION WIDTH 14.8 % (11.5-14.5)
[2017-10-16 08:37] LABS: WHITE BLOOD COUNT 7.3 10^3/ul (4.8-10.8)
[2017-10-16] MEDS: NIFEdipine (XL) 60 MG TAB PO (10:16)
[2017-10-16] MEDS: LISINOPRIL 20 MG TAB PO (10:16)
[2017-10-18] MEDS ORDERED: EPOETIN 10000 UNITS/ML (NON ESRD/NON ONCOLOGY) SC (17:00)
== END 2017-10-16 12:44 | disposition home or self-care (01) | DRG 291 ==
LOC: ICU 10-11 23:46 → TEL 10-12 19:15 → E/R 11:23 → MS4 14:31
PROC: 06HM33Z Insertion of Infusion Device into Right Femoral Vein, Percutaneous Approach (ICD-10-PCS; principal; 2017-10-09 14:48)
PROC: 5A1D70Z Performance of Urinary Filtration, Intermittent, Less than 6 Hours Per Day (ICD-10-PCS; 2017-10-09 14:48)
PROC: 0JH63XZ Insertion of Tunneled Vascular Access Device into Chest Subcutaneous Tissue and Fascia, Percutaneous Approach (ICD-10-PCS; 2017-10-09 14:48)
PROC: 02HV33Z Insertion of Infusion Device into Superior Vena Cava, Percutaneous Approach (ICD-10-PCS; 2017-10-09 14:48)
PROC: B518YZA Fluoroscopy of Superior Vena Cava using Other Contrast, Guidance (ICD-10-PCS; 2017-10-09 14:48)
DX: I13.2 Hypertensive heart and chronic kidney disease with heart failure and with stage 5 chronic kidney disease, or end stage renal disease (principal); N18.6 End stage renal disease; I50.43 Acute on chronic combined systolic (congestive) and diastolic (congestive) heart failure; N17.9 Acute kidney failure, unspecified; D63.1 Anemia in chronic kidney disease; E11.22 Type 2 diabetes mellitus with diabetic chronic kidney disease; E87.5 Hyperkalemia; E78.5 Hyperlipidemia, unspecified; E05.90 Thyrotoxicosis, unspecified without thyrotoxic crisis or storm; E11.649 Type 2 diabetes mellitus with hypoglycemia without coma; F32.9 Major depressive disorder, single episode, unspecified; I42.9 Cardiomyopathy, unspecified; I27.20 Pulmonary hypertension, unspecified; I07.1 Rheumatic tricuspid insufficiency; R60.1 Generalized edema; R13.10 Dysphagia, unspecified; R00.1 Bradycardia, unspecified; Z99.2 Dependence on renal dialysis; Z79.84 Long term (current) use of oral hypoglycemic drugs
CPT/HCPCS: 71045; 71046; 71250; 76775; 76937; 80048; 80053; 80061; 80076; 81001; 81003; 82040; 82550; 82553; 82575; 82962; 83036; 83605; 83735; 83880; 84100; 84155; 84156; 84300; 84484; 85025; 85610; 85651; 85730; 86021; 86038; 86140; 86703; 86704; 86709; 86803; 87040; 87075; 87340; 89190; 90935; 92610; 93005; 93306; 93923; 93970; 94664; 96374; 96375; 97161; 99285-25

== ENCOUNTER 2017-10-28 13:10 | Inpatient (IN) | payer OTHER ==
[2017-10-28 14:06] LABS: ADD MAN DIFF? NO
[2017-10-28 14:10] LABS: WHITE BLOOD COUNT 7.7 10^3/ul (4.8-10.8)
[2017-10-28 14:10] LABS: ABNORMAL IP MESSAGE 1; BASOPHILS % 0.3 % (0.0-2.0); EOSINOPHILS # 0.2 10^3/ul (0.0-0.5); EOSINOPHILS % 2.2 % (0.0-7.0); HEMATOCRIT 30.3 % (42.0-52.0); HEMOGLOBIN 9.3 g/dl (14.0-18.0); LYMPHOCYTES # 2.5 10^3/ul (0.8-2.9); LYMPHOCYTES % 31.9 % (15.0-51.0); MEAN CORPUSCULAR HEMOGLOBIN 29.7 pg (29.0-33.0); MEAN CORPUSCULAR HGB CONC 30.7 g/dl (32.0-37.0); MEAN CORPUSCULAR VOLUME 96.8 fl (82.0-101.0); MEAN PLATELET VOLUME 12.3 fl (7.4-10.4); MONOCYTE # 0.3 10^3/ul (0.3-0.9); MONOCYTES % 3.5 % (0.0-11.0); NEUTROPHIL # 4.6 10^3/ul (1.6-7.5); PLATELET COUNT 75 10^3/UL (140-415); POSITIVE DIFF @See below; RED BLOOD COUNT 3.13 10^6/ul (4.70-6.10)
[2017-10-28] MEDS: MIDAZOLAM (DRIP) 50 mg/50 mL 50 ML IV ×2 (14:19→22:30)
[2017-10-28 14:26] LABS: ALANINE AMINOTRANSFERASE 148 IU/L (13-69); ALKALINE PHOSPHATASE 199 IU/L (42-121); ASPARTATE AMINO TRANSFERASE 167 IU/L (15-46); BILIRUBIN,INDIRECT 0.5 mg/dl (0-1.1); BILIRUBIN,TOTAL 0.5 mg/dl (0.2-1.3); LIPASE 321 U/L (23-300); TOTAL PROTEIN 6.5 g/dl (6.1-8.1)
[2017-10-28 14:29] LABS: ANION GAP 17 (8-16); BLOOD UREA NITROGEN 58 mg/dl (7-20); CALCIUM 12.6 mg/dl (8.4-10.2); CARBON DIOXIDE 24 mmol/L (21-31); CHLORIDE 98 mmol/L (97-110); CREATININE 2.38 mg/dl (0.61-1.24); GLUCOSE 277 mg/dl (70-220); POTASSIUM 4.3 mmol/L (3.5-5.1); SODIUM 135 mmol/L (135-144)
[2017-10-28] MEDS: FUROSEMIDE 40 MG INJ IV (14:30)
[2017-10-28] MEDS: LORAZEPAM 2 MG INJ IV ×2 (14:30→17:57)
[2017-10-28 14:31] LABS: PROTIME 16.4 Sec (11.9-14.9); PT RATIO 1.3
[2017-10-28 14:38] LABS: TROPONIN-I 0.037 ng/ml (0.00-0.12)
[2017-10-28] MEDS: FENTAnyl 50 MCG/ML VIAL IV ×2 (15:12→17:55)
[2017-10-28] MEDS ORDERED: ALBUTEROL HFA 8 GM INHALER INH (15:30)
[2017-10-28] MEDS: CALCIUM GLUCONATE 10% 1 GM in DEXTROSE 5% 100 ML IVPB (15:32)
[2017-10-28] MEDS ORDERED: ALBUMIN HUMAN 25% 100 ML IV (16:30)
[2017-10-28 16:56] LABS: ADD UMIC YES; UR ASCORBIC ACID NEGATIVE (NEGATIVE); UR BACTERIA FEW /HPF (NONE SEEN); UR BILIRUBIN (Dip) NEGATIVE (NEGATIVE); UR BLOOD (Dip) 1+ mg/dL (NEGATIVE); UR CLARITY CLEAR (CLEAR); UR COLOR YELLOW (YELLOW); UR GLUCOSE (Dip) 1+ mg/dL (NEGATIVE); UR KETONES (Dip) NEGATIVE (NEGATIVE); UR LEUKOCYTE ESTERASE (Dip) NEGATIVE Leu/ul (NEGATIVE); UR NITRITE (Dip) NEGATIVE (NEGATIVE); UR RBC 10 /HPF (0-5); UR TOTAL PROTEIN (Dip) 3+ mg/dl (NEGATIVE); UR UROBILINOGEN (Dip) NEGATIVE (NEGATIVE); UR WBC 1 /HPF (0-5)
[2017-10-28] MEDS: CEFEPIME 1GM/50 ML (PMX) 50 ML IVPB (17:00)
[2017-10-28 17:18] LABS: HEPATITIS B SURFACE ANTIGEN NEGATIVE (NEGATIVE)
[2017-10-28 17:21] LABS: AMPHETAMINE/METHAMPHETAMINE Negative (NEGATIVE); BARBITURATES Negative (NEGATIVE); BENZODIAZEPINES Negative (NEGATIVE); CANNABINOIDS Negative (NEGATIVE); COCAINE Negative (NEGATIVE); OPIATES Negative (NEGATIVE)
[2017-10-28] MEDS: ENALAPRILAT 1.25 MG INJ IV (17:23)
[2017-10-28] MEDS ORDERED: GLUCOSE GEL 15 GRAM TUBE BUCCAL (17:30)
[2017-10-28] MEDS ORDERED: GLUCAGON 1 MG INJ IM (17:30)
[2017-10-28] MEDS ORDERED: GLUCOSE GEL 15 GRAM TUBE PO ×2 (17:30)
[2017-10-28] MEDS ORDERED: DEXTROSE 50% 50 ML SYRINGE IV ×2 (17:30)
[2017-10-28] MEDS: PROPOFOL 100 ML IV (18:11)
[2017-10-28] MEDS: HEPARIN 1000 UNITS/ML 10 ML INJ CATHETER (19:33)
[2017-10-28 20:02] LABS: AADO2 Arterial 105.9 mmHg (7.0-24.0); Allen Test ACCEPTAB; Arterial Base Excess -2.1 mmol/L (-3.0-3); Arterial Blood Gas Oxygen Sat 99.6 mmHG (95.0-98.0); Arterial COHb 0.3 % (0.0-3.0); Arterial Fraction of Oxyhgb 98.9 % (93.0-99.0); Arterial HCO3 23.2 mmol/L (22.0-26.0); Arterial MetHb 0.4 % (0.0-1.5); Arterial Total Hemglobin 10.1 g/dl (12.0-18.0); Arterial pCO2 41.9 mmhg (35-45); MODE VENT - AC; Site LB
[2017-10-28] MEDS: LABETALOL HCL 20MG INJ IV (20:59)
[2017-10-28] MEDS: INSULIN ASPART [NOVOLOG] 3 ML PEN SC ×2 (21:00→21:25)
[2017-10-28 21:01] LABS: CREATINE KINASE 204 IU/L (23-200)
[2017-10-28 21:14] LABS: CK INDEX 3.5
[2017-10-28 21:18] LABS: CK-MB 7.04 ng/ml (0.0-2.4); TROPONIN-I 0.649 ng/ml (0.000-0.120)
[2017-10-28] MEDS: FAMOTIDINE 20 MG INJ IV (21:25)
[2017-10-28] MEDS: HEPARIN 5,000 UNIT/0.5 ML VIAL SC (21:27)
[2017-10-28] MEDS: FENTAnyl (DRIP) 1000 mcg/100mL 100 ML IV (21:33)
[2017-10-28 23:27] LABS: PHOSPHORUS 3.9 mg/dl (2.5-4.9)
[2017-10-28 23:29] LABS: ANION GAP 14 (8-16); BLOOD UREA NITROGEN 50 mg/dl (7-20); CALCIUM 10.1 mg/dl (8.4-10.2); CARBON DIOXIDE 29 mmol/L (21-31); CHLORIDE 99 mmol/L (97-110); CREATININE 2.06 mg/dl (0.61-1.24); GLUCOSE 149 mg/dl (70-220); MAGNESIUM 1.9 mg/dl (1.7-2.5); POTASSIUM 4.4 mmol/L (3.5-5.1); SODIUM 138 mmol/L (135-144)
[2017-10-29] MEDS: PROPOFOL 100 ML IV ×3 (00:10→13:01)
[2017-10-29] MEDS: ACCU-CHEK XX (02:00)
[2017-10-29] MEDS: NITROGLYCERIN 2% 1 GM OINT PKT TD ×5 (02:10→23:52)
[2017-10-29 03:47] LABS: ADD MAN DIFF? NO
[2017-10-29 03:51] LABS: ABNORMAL IP MESSAGE 1; BASOPHILS % 0.1 % (0.0-2.0); HEMATOCRIT 27.3 % (42.0-52.0); HEMOGLOBIN 8.7 g/dl (14.0-18.0); LYMPHOCYTES # 0.3 10^3/ul (0.8-2.9); LYMPHOCYTES % 2.1 % (15.0-51.0); MEAN CORPUSCULAR HEMOGLOBIN 29.7 pg (29.0-33.0); MEAN CORPUSCULAR HGB CONC 31.9 g/dl (32.0-37.0); MEAN CORPUSCULAR VOLUME 93.2 fl (82.0-101.0); MEAN PLATELET VOLUME 12.2 fl (7.4-10.4); MONOCYTE # 0.5 10^3/ul (0.3-0.9); MONOCYTES % 3.6 % (0.0-11.0); NEUTROPHIL # 13.9 10^3/ul (1.6-7.5); PLATELET COUNT 73 10^3/UL (140-415); POSITIVE DIFF @See below; RED BLOOD COUNT 2.93 10^6/ul (4.70-6.10); RED CELL DISTRIBUTION WIDTH 14.9 % (11.5-14.5)
[2017-10-29 03:51] LABS: WHITE BLOOD COUNT 14.9 10^3/ul (4.8-10.8)
[2017-10-29 04:09] LABS: ALANINE AMINOTRANSFERASE 126 IU/L (13-69); ALBUMIN 3.6 g/dl (3.3-4.9); ALBUMIN/GLOBULIN RATIO 1.44; ALKALINE PHOSPHATASE 164 IU/L (42-121); ANION GAP 15 (8-16); ASPARTATE AMINO TRANSFERASE 110 IU/L (15-46); BILIRUBIN,INDIRECT 0.5 mg/dl (0-1.1); BILIRUBIN,TOTAL 0.5 mg/dl (0.2-1.3); BLOOD UREA NITROGEN 52 mg/dl (7-20); CALCIUM 9.5 mg/dl (8.4-10.2); CARBON DIOXIDE 29 mmol/L (21-31); CHLORIDE 100 mmol/L (97-110); CREATININE 2.29 mg/dl (0.61-1.24); GLUCOSE 144 mg/dl (70-220); POTASSIUM 4.8 mmol/L (3.5-5.1); SODIUM 139 mmol/L (135-144); TOTAL PROTEIN 6.1 g/dl (6.1-8.1)
[2017-10-29 04:10] LABS: NEUTROPHILS % 93.4 % (39.0-77.0)
[2017-10-29 04:11] LABS: CREATINE KINASE 162 IU/L (23-200)
[2017-10-29 04:22] LABS: CK INDEX 3.5
[2017-10-29 04:37] LABS: CK-MB 5.59 ng/ml (0.0-2.4); TROPONIN-I 0.646 ng/ml (0.000-0.120)
[2017-10-29 05:01] LABS: ACANTHOCYTES 2+ (0-0); ANISOCYTOSIS 1+ (0-0); BAND NEUTROPHILS #M 2.2 10^3/ul (0.0-0.6); BAND NEUTROPHILS % (M) 15 % (0-4); BURR CELLS 1+ (0-0); ECHINOCYTOSIS 1+ (0-0); LYMPHOCYTES #M 0.2 10^3/ul (0.8-2.9); LYMPHOCYTES % (M) 2 % (15-51); MICROCYTOSIS 1+ (0-0); MONOCYTE #M 0.2 10^3/ul (0.3-0.9); MONOCYTES % (M) 2 % (0-11); PLATELET ESTIMATE DECREASED; POIKILOCYTOSIS 2+ (0-0); POLYCHROMASIA 1+ (0-0); SEG NEUT #M 12.4 10^3/ul (1.6-7.5); SEGMENTED NEUTROPHILS (M) % 81 % (39-77)
[2017-10-29] MEDS: HEPARIN 5,000 UNIT/0.5 ML VIAL SC ×3 (05:14→22:00)
[2017-10-29] MEDS: INSULIN ASPART [NOVOLOG] 3 ML PEN SC ×4 (08:38→20:56)
[2017-10-29 09:00] LABS: AADO2 Arterial 134.5 mmHg (7.0-24.0); Allen Test ACCEPTAB; Arterial Base Excess 0.7 mmol/L (-3.0-3); Arterial Blood Gas Oxygen Sat 97.3 mmHG (95.0-98.0); Arterial COHb 0.3 % (0.0-3.0); Arterial Fraction of Oxyhgb 96.6 % (93.0-99.0); Arterial HCO3 25.8 mmol/L (22.0-26.0); Arterial MetHb 0.4 % (0.0-1.5); Arterial Total Hemglobin 9.4 g/dl (12.0-18.0); Arterial pCO2 43.5 mmhg (35-45); Blood Gas Low PEEP Setting 0 cmH2O; MODE VENT - AC; Site Left Radial
[2017-10-29] MEDS: FAMOTIDINE 20 MG INJ IV ×2 (10:45→20:56)
[2017-10-29] MEDS: CEFEPIME 1GM/50 ML (PMX) 50 ML IVPB (16:59)
[2017-10-29] MEDS: FENTAnyl (DRIP) 1000 mcg/100mL 100 ML IV (17:10)
[2017-10-30] MEDS: ACCU-CHEK XX (02:00)
[2017-10-30] MEDS: HEPARIN 5,000 UNIT/0.5 ML VIAL SC ×3 (05:55→21:41)
[2017-10-30] MEDS: MIDAZOLAM (DRIP) 50 mg/50 mL 50 ML IV (05:58)
[2017-10-30] MEDS: NITROGLYCERIN 2% 1 GM OINT PKT TD ×3 (05:58→17:12)
[2017-10-30 06:21] LABS: ADD MAN DIFF? NO
[2017-10-30 06:23] LABS: ABNORMAL IP MESSAGE 1; BASOPHILS % 0.4 % (0.0-2.0); EOSINOPHILS # 0.2 10^3/ul (0.0-0.5); EOSINOPHILS % 2.2 % (0.0-7.0); HEMATOCRIT 24.7 % (42.0-52.0); LYMPHOCYTES # 0.6 10^3/ul (0.8-2.9); LYMPHOCYTES % 5.8 % (15.0-51.0); MEAN CORPUSCULAR HEMOGLOBIN 30.3 pg (29.0-33.0); MEAN CORPUSCULAR HGB CONC 32.4 g/dl (32.0-37.0); MEAN CORPUSCULAR VOLUME 93.6 fl (82.0-101.0); MEAN PLATELET VOLUME 12.7 fl (7.4-10.4); MONOCYTE # 0.6 10^3/ul (0.3-0.9); MONOCYTES % 6.1 % (0.0-11.0); NEUTROPHIL # 8.4 10^3/ul (1.6-7.5); NEUTROPHILS % 83.9 % (39.0-77.0); PLATELET COUNT 112 10^3/UL (140-415); POSITIVE DIFF @See below; RED BLOOD COUNT 2.64 10^6/ul (4.70-6.10); RED CELL DISTRIBUTION WIDTH 15.5 % (11.5-14.5)
[2017-10-30 07:01] LABS: ALANINE AMINOTRANSFERASE 85 IU/L (13-69); ALKALINE PHOSPHATASE 134 IU/L (42-121); ANION GAP 13 (8-16); ASPARTATE AMINO TRANSFERASE 51 IU/L (15-46); BILIRUBIN,INDIRECT 0.3 mg/dl (0-1.1); BILIRUBIN,TOTAL 0.3 mg/dl (0.2-1.3); BLOOD UREA NITROGEN 69 mg/dl (7-20); CALCIUM 9.3 mg/dl (8.4-10.2); CARBON DIOXIDE 28 mmol/L (21-31); CHLORIDE 101 mmol/L (97-110); CREATININE 4.22 mg/dl (0.61-1.24); GLUCOSE 97 mg/dl (70-220); SODIUM 136 mmol/L (135-144); TOTAL PROTEIN 5.3 g/dl (6.1-8.1)
[2017-10-30 07:11] LABS: POTASSIUM 5.5 mmol/L (3.5-5.1)
[2017-10-30] MEDS: INSULIN ASPART [NOVOLOG] 3 ML PEN SC ×3 (07:35→17:12)
[2017-10-30] MEDS: FAMOTIDINE 20 MG INJ IV ×2 (08:20→20:43)
[2017-10-30] MEDS: PROPOFOL 100 ML IV ×2 (11:07→23:27)
[2017-10-30] MEDS: ASPIRIN 81 MG TAB NGT (14:05)
[2017-10-30] MEDS: CEFEPIME 1GM/50 ML (PMX) 50 ML IVPB (17:12)
[2017-10-30] MEDS: LABETALOL HCL 20MG INJ IV (18:41)
[2017-10-30] MEDS: ATORVASTATIN 80 MG TAB PO (20:43)
[2017-10-31] MEDS: NITROGLYCERIN 2% 1 GM OINT PKT TD ×5 (00:03→23:45)
[2017-10-31] MEDS: ACCU-CHEK XX ×2 (02:00)
[2017-10-31] MEDS: LABETALOL HCL 20MG INJ IV ×3 (03:38→12:31)
[2017-10-31 05:20] LABS: ADD MAN DIFF? NO
[2017-10-31] MEDS: INSULIN ASPART [NOVOLOG] 3 ML PEN SC ×5 (05:31→23:47)
[2017-10-31 05:33] LABS: WHITE BLOOD COUNT 9.6 10^3/ul (4.8-10.8)
[2017-10-31 05:33] LABS: BASOPHILS % 0.3 % (0.0-2.0); EOSINOPHILS # 0.1 10^3/ul (0.0-0.5); EOSINOPHILS % 0.8 % (0.0-7.0); HEMATOCRIT 25.8 % (42.0-52.0); HEMOGLOBIN 8.3 g/dl (14.0-18.0); LYMPHOCYTES # 0.7 10^3/ul (0.8-2.9); LYMPHOCYTES % 7.2 % (15.0-51.0); MEAN CORPUSCULAR HEMOGLOBIN 29.5 pg (29.0-33.0); MEAN CORPUSCULAR HGB CONC 32.2 g/dl (32.0-37.0); MEAN CORPUSCULAR VOLUME 91.8 fl (82.0-101.0); MEAN PLATELET VOLUME 11.5 fl (7.4-10.4); MONOCYTE # 0.5 10^3/ul (0.3-0.9); MONOCYTES % 5.3 % (0.0-11.0); NEUTROPHIL # 8.2 10^3/ul (1.6-7.5); NEUTROPHILS % 85.3 % (39.0-77.0); PLATELET COUNT 148 10^3/UL (140-415); RED BLOOD COUNT 2.81 10^6/ul (4.70-6.10); RED CELL DISTRIBUTION WIDTH 15.6 % (11.5-14.5)
[2017-10-31] MEDS: HEPARIN 5,000 UNIT/0.5 ML VIAL SC ×3 (05:37→22:07)
[2017-10-31 05:45] LABS: ALANINE AMINOTRANSFERASE 67 IU/L (13-69); ALBUMIN 3.3 g/dl (3.3-4.9); ALBUMIN/GLOBULIN RATIO 1.26; ALKALINE PHOSPHATASE 147 IU/L (42-121); ANION GAP 17 (8-16); ASPARTATE AMINO TRANSFERASE 53 IU/L (15-46); BILIRUBIN,INDIRECT 0.7 mg/dl (0-1.1); BILIRUBIN,TOTAL 0.7 mg/dl (0.2-1.3); BLOOD UREA NITROGEN 54 mg/dl (7-20); CALCIUM 8.6 mg/dl (8.4-10.2); CARBON DIOXIDE 27 mmol/L (21-31); CHLORIDE 101 mmol/L (97-110); CREATININE 3.74 mg/dl (0.61-1.24); GLUCOSE 85 mg/dl (70-220); POTASSIUM 4.4 mmol/L (3.5-5.1); SODIUM 141 mmol/L (135-144); TOTAL PROTEIN 5.9 g/dl (6.1-8.1)
[2017-10-31 06:13] LABS: MAGNESIUM 2.1 mg/dl (1.7-2.5)
[2017-10-31] MEDS: FAMOTIDINE 20 MG INJ IV ×2 (08:25→20:33)
[2017-10-31] MEDS: ASPIRIN 81 MG TAB NGT (08:25)
[2017-10-31] MEDS: hydrALAzine 20 MG INJ IV ×3 (10:15→22:07)
[2017-10-31] MEDS: PROPOFOL 100 ML IV ×2 (12:00→23:00)
[2017-10-31] MEDS: CEFEPIME 1GM/50 ML (PMX) 50 ML IVPB (17:39)
[2017-10-31] MEDS: ATORVASTATIN 80 MG TAB PO (20:33)
[2017-11-01] MEDS: ACCU-CHEK XX ×4 (02:00→19:44)
[2017-11-01 05:21] LABS: ADD MAN DIFF? NO
[2017-11-01 05:24] LABS: ABNORMAL IP MESSAGE 1; BASOPHILS % 0.2 % (0.0-2.0); EOSINOPHILS # 0.1 10^3/ul (0.0-0.5); EOSINOPHILS % 0.7 % (0.0-7.0); HEMATOCRIT 27.1 % (42.0-52.0); HEMOGLOBIN 8.7 g/dl (14.0-18.0); LYMPHOCYTES # 0.4 10^3/ul (0.8-2.9); LYMPHOCYTES % 4.2 % (15.0-51.0); MEAN CORPUSCULAR HEMOGLOBIN 29.6 pg (29.0-33.0); MEAN CORPUSCULAR HGB CONC 32.1 g/dl (32.0-37.0); MEAN CORPUSCULAR VOLUME 92.2 fl (82.0-101.0); MEAN PLATELET VOLUME 11.5 fl (7.4-10.4); MONOCYTE # 0.9 10^3/ul (0.3-0.9); MONOCYTES % 8.2 % (0.0-11.0); NEUTROPHILS % 86.4 % (39.0-77.0); PLATELET COUNT 207 10^3/UL (140-415); POSITIVE DIFF @See below; RED BLOOD COUNT 2.94 10^6/ul (4.70-6.10); RED CELL DISTRIBUTION WIDTH 15.8 % (11.5-14.5)
[2017-11-01 05:24] LABS: WHITE BLOOD COUNT 10.4 10^3/ul (4.8-10.8)
[2017-11-01 05:40] LABS: ANION GAP 14 (8-16); BLOOD UREA NITROGEN 73 mg/dl (7-20); CALCIUM 8.8 mg/dl (8.4-10.2); CARBON DIOXIDE 29 mmol/L (21-31); CHLORIDE 103 mmol/L (97-110); CREATININE 4.93 mg/dl (0.61-1.24); GLUCOSE 149 mg/dl (70-220); POTASSIUM 4.3 mmol/L (3.5-5.1); SODIUM 142 mmol/L (135-144)
[2017-11-01] MEDS: HEPARIN 5,000 UNIT/0.5 ML VIAL SC ×3 (06:02→21:18)
[2017-11-01] MEDS: INSULIN ASPART [NOVOLOG] 3 ML PEN SC ×3 (06:02→18:00)
[2017-11-01] MEDS: NITROGLYCERIN 2% 1 GM OINT PKT TD ×3 (06:04→18:00)
[2017-11-01] MEDS: LABETALOL HCL 20MG INJ IV (07:55)
[2017-11-01] MEDS: FAMOTIDINE 20 MG INJ IV ×2 (09:00→21:05)
[2017-11-01] MEDS: ASPIRIN 81 MG TAB NGT (09:00)
[2017-11-01] MEDS: PROPOFOL 100 ML IV ×2 (12:00→19:38)
[2017-11-01] MEDS: ACETAMINOPHEN 650MG/20.3ML CUP NGT (15:44)
[2017-11-01] MEDS: CEFEPIME 1GM/50 ML (PMX) 50 ML IVPB (17:00)
[2017-11-01] MEDS: ATORVASTATIN 80 MG TAB PO (21:06)
[2017-11-02] MEDS: NITROGLYCERIN 2% 1 GM OINT PKT TD ×4 (00:20→17:22)
[2017-11-02] MEDS: INSULIN ASPART [NOVOLOG] 3 ML PEN SC ×5 (00:33→18:14)
[2017-11-02] MEDS: HEPARIN 5,000 UNIT/0.5 ML VIAL SC ×3 (06:18→21:38)
[2017-11-02] MEDS: LABETALOL HCL 20MG INJ IV ×2 (06:31→11:07)
[2017-11-02] MEDS: hydrALAzine 20 MG INJ IV (11:16)
[2017-11-02] MEDS: PROPOFOL 100 ML IV (12:00)
[2017-11-02] MEDS: HEPARIN 1000 UNITS/ML 10 ML INJ CATHETER (12:07)
[2017-11-02] MEDS: FAMOTIDINE 20 MG INJ IV ×2 (12:27→21:26)
[2017-11-02] MEDS: ASPIRIN 81 MG TAB NGT (12:29)
[2017-11-02] MEDS: NIFEdipine (XL) 60 MG TAB PO (13:17)
[2017-11-02] MEDS: CEFEPIME 1GM/50 ML (PMX) 50 ML IVPB (17:21)
[2017-11-02] MEDS: ACETAMINOPHEN 650MG/20.3ML CUP NGT (17:22)
[2017-11-02] MEDS: ATORVASTATIN 80 MG TAB PO (21:25)
[2017-11-03] MEDS: NITROGLYCERIN 2% 1 GM OINT PKT TD ×4 (00:31→17:33)
[2017-11-03] MEDS: INSULIN ASPART [NOVOLOG] 3 ML PEN SC ×4 (00:42→17:37)
[2017-11-03] MEDS: ACCU-CHEK XX ×2 (02:00)
[2017-11-03 05:17] LABS: WHITE BLOOD COUNT 9.9 10^3/ul (4.8-10.8)
[2017-11-03 05:17] LABS: ADD MAN DIFF? NO; BASOPHILS % 0.3 % (0.0-2.0); EOSINOPHILS # 0.2 10^3/ul (0.0-0.5); EOSINOPHILS % 2.4 % (0.0-7.0); HEMOGLOBIN 8.7 g/dl (14.0-18.0); LYMPHOCYTES # 0.6 10^3/ul (0.8-2.9); LYMPHOCYTES % 6.2 % (15.0-51.0); MEAN CORPUSCULAR HEMOGLOBIN 29.8 pg (29.0-33.0); MEAN CORPUSCULAR HGB CONC 32.2 g/dl (32.0-37.0); MEAN CORPUSCULAR VOLUME 92.5 fl (82.0-101.0); MEAN PLATELET VOLUME 11.2 fl (7.4-10.4); MONOCYTES % 10.2 % (0.0-11.0); NEUTROPHILS % 80.4 % (39.0-77.0); PLATELET COUNT 253 10^3/UL (140-415); RED BLOOD COUNT 2.92 10^6/ul (4.70-6.10); RED CELL DISTRIBUTION WIDTH 15.5 % (11.5-14.5)
[2017-11-03 05:41] LABS: MAGNESIUM 2.4 mg/dl (1.7-2.5)
[2017-11-03 05:43] LABS: ALANINE AMINOTRANSFERASE 60 IU/L (13-69); ALBUMIN 3.1 g/dl (3.3-4.9); ALKALINE PHOSPHATASE 180 IU/L (42-121); ANION GAP 16 (8-16); ASPARTATE AMINO TRANSFERASE 72 IU/L (15-46); BILIRUBIN,INDIRECT 0.4 mg/dl (0-1.1); BILIRUBIN,TOTAL 0.4 mg/dl (0.2-1.3); BLOOD UREA NITROGEN 71 mg/dl (7-20); CALCIUM 8.3 mg/dl (8.4-10.2); CARBON DIOXIDE 30 mmol/L (21-31); CHLORIDE 103 mmol/L (97-110); CREATININE 4.28 mg/dl (0.61-1.24); GLUCOSE 182 mg/dl (70-220); POTASSIUM 3.9 mmol/L (3.5-5.1); SODIUM 145 mmol/L (135-144); TOTAL PROTEIN 5.9 g/dl (6.1-8.1)
[2017-11-03] MEDS: HEPARIN 5,000 UNIT/0.5 ML VIAL SC ×3 (05:46→21:16)
[2017-11-03] MEDS: hydrALAzine 20 MG INJ IV ×2 (06:21→19:18)
[2017-11-03] MEDS: FAMOTIDINE 20 MG INJ IV ×2 (09:12→21:11)
[2017-11-03] MEDS: ASPIRIN 81 MG TAB NGT (09:12)
[2017-11-03] MEDS: NIFEdipine (XL) 60 MG TAB PO (09:13)
[2017-11-03] MEDS: PROPOFOL 100 ML IV ×2 (12:00)
[2017-11-03] MEDS: CEFEPIME 1GM/50 ML (PMX) 50 ML IVPB (17:33)
[2017-11-03] MEDS: ATORVASTATIN 80 MG TAB PO (21:10)
[2017-11-04] MEDS: PROPOFOL 100 ML IV
[2017-11-04] MEDS: NITROGLYCERIN 2% 1 GM OINT PKT TD ×3 (00:38→11:52)
[2017-11-04] MEDS: INSULIN ASPART [NOVOLOG] 3 ML PEN SC ×4 (00:49→18:01)
[2017-11-04] MEDS: ACCU-CHEK XX ×2 (02:00)
[2017-11-04] MEDS: LABETALOL HCL 20MG INJ IV (03:45)
[2017-11-04 05:13] LABS: ADD MAN DIFF? NO
[2017-11-04 05:34] LABS: WHITE BLOOD COUNT 10.4 10^3/ul (4.8-10.8)
[2017-11-04 05:34] LABS: ANION GAP 16 (8-16); BASOPHILS % 0.4 % (0.0-2.0); BLOOD UREA NITROGEN 89 mg/dl (7-20); CALCIUM 8.4 mg/dl (8.4-10.2); CARBON DIOXIDE 28 mmol/L (21-31); CHLORIDE 104 mmol/L (97-110); CREATININE 5.36 mg/dl (0.61-1.24); EOSINOPHILS # 0.4 10^3/ul (0.0-0.5); EOSINOPHILS % 4.2 % (0.0-7.0); GLUCOSE 225 mg/dl (70-220); HEMATOCRIT 27.7 % (42.0-52.0); HEMOGLOBIN 8.7 g/dl (14.0-18.0); LYMPHOCYTES # 0.7 10^3/ul (0.8-2.9); LYMPHOCYTES % 6.3 % (15.0-51.0); MEAN CORPUSCULAR HEMOGLOBIN 29.1 pg (29.0-33.0); MEAN CORPUSCULAR HGB CONC 31.4 g/dl (32.0-37.0); MEAN CORPUSCULAR VOLUME 92.6 fl (82.0-101.0); MEAN PLATELET VOLUME 11.6 fl (7.4-10.4); MONOCYTE # 0.9 10^3/ul (0.3-0.9); MONOCYTES % 8.2 % (0.0-11.0); NEUTROPHIL # 8.4 10^3/ul (1.6-7.5); NEUTROPHILS % 80.5 % (39.0-77.0); PLATELET COUNT 301 10^3/UL (140-415); POTASSIUM 3.6 mmol/L (3.5-5.1); RED BLOOD COUNT 2.99 10^6/ul (4.70-6.10); RED CELL DISTRIBUTION WIDTH 15.2 % (11.5-14.5); SODIUM 144 mmol/L (135-144)
[2017-11-04 05:36] LABS: MAGNESIUM 2.5 mg/dl (1.7-2.5)
[2017-11-04 05:36] LABS: PHOSPHORUS 4.1 mg/dl (2.5-4.9)
[2017-11-04] MEDS: HEPARIN 5,000 UNIT/0.5 ML VIAL SC ×2 (05:47→13:40)
[2017-11-04] MEDS: hydrALAzine 20 MG INJ IV (05:49)
[2017-11-04] MEDS: ASPIRIN 81 MG TAB NGT (08:02)
[2017-11-04] MEDS: FAMOTIDINE 20 MG INJ IV ×2 (08:03→21:13)
[2017-11-04] MEDS ORDERED: FENTAnyl (DRIP) 1000 mcg/100mL 100 ML IV (10:00)
[2017-11-04] MEDS ORDERED: MIDAZOLAM (DRIP) 50 mg/50 mL 50 ML IV (10:00)
[2017-11-04] MEDS: HEPARIN 1000 UNITS/ML 10 ML INJ CATHETER (11:17)
[2017-11-04] MEDS: NIFEdipine (XL) 60 MG TAB PO (11:47)
[2017-11-04] MEDS ORDERED: PROPOFOL 100 ML IV (12:00)
[2017-11-04] MEDS ORDERED: HEPARIN 1000 UNITS/ML 10 ML INJ IV ×2 (16:30)
[2017-11-04 16:41] LABS: ADD MAN DIFF? NO
[2017-11-04 17:02] LABS: BASOPHILS % 0.3 % (0.0-2.0); EOSINOPHILS % 2.2 % (0.0-7.0); HEMATOCRIT 29.4 % (42.0-52.0); HEMOGLOBIN 9.3 g/dl (14.0-18.0); INR 1.14; LYMPHOCYTES % 5.1 % (15.0-51.0); MEAN CORPUSCULAR HGB CONC 31.6 g/dl (32.0-37.0); MEAN CORPUSCULAR VOLUME 91.6 fl (82.0-101.0); MEAN PLATELET VOLUME 11.5 fl (7.4-10.4); MONOCYTES % 7.2 % (0.0-11.0); NEUTROPHILS % 84.8 % (39.0-77.0); PLATELET COUNT 356 10^3/UL (140-415); PROTIME 14.8 Sec (11.9-14.9); PT RATIO 1.2; RED BLOOD COUNT 3.21 10^6/ul (4.70-6.10)
[2017-11-04 17:03] LABS: EOSINOPHILS # 0.3 10^3/ul (0.0-0.5); LYMPHOCYTES # 0.6 10^3/ul (0.8-2.9); MONOCYTE # 0.9 10^3/ul (0.3-0.9); NEUTROPHIL # 10.2 10^3/ul (1.6-7.5); PARTIAL THROMBOPLASTIN TIME 32.6 Sec (25.0-35.0)
[2017-11-04] MEDS: CEFEPIME 1GM/50 ML (PMX) 50 ML IVPB (17:19)
[2017-11-04] MEDS: HEPARIN 25000 UNITS/250 ML 250 ML IV (17:25)
[2017-11-04] MEDS: ATORVASTATIN 80 MG TAB PO (21:12)
[2017-11-04 23:09] LABS: PARTIAL THROMBOPLASTIN TIME 114.5 Sec (25.0-35.0)
[2017-11-05] MEDS: INSULIN ASPART [NOVOLOG] 3 ML PEN SC ×4 (00:10→16:55)
[2017-11-05] MEDS: DOCUSATE SODIUM 10 MG/ML (10ML CUP) NGT ×2 (00:43→12:22)
[2017-11-05] MEDS: ACCU-CHEK XX (02:22)
[2017-11-05] MEDS: hydrALAzine 20 MG INJ IV (05:44)
[2017-11-05 06:11] LABS: ADD MAN DIFF? NO
[2017-11-05 06:28] LABS: WHITE BLOOD COUNT 11.6 10^3/ul (4.8-10.8)
[2017-11-05 06:28] LABS: BASOPHILS % 0.3 % (0.0-2.0); EOSINOPHILS # 0.4 10^3/ul (0.0-0.5); EOSINOPHILS % 3.8 % (0.0-7.0); HEMATOCRIT 28.9 % (42.0-52.0); HEMOGLOBIN 9.1 g/dl (14.0-18.0); LYMPHOCYTES # 0.8 10^3/ul (0.8-2.9); LYMPHOCYTES % 6.6 % (15.0-51.0); MEAN CORPUSCULAR HGB CONC 31.5 g/dl (32.0-37.0); MEAN PLATELET VOLUME 12.5 fl (7.4-10.4); MONOCYTE # 0.9 10^3/ul (0.3-0.9); MONOCYTES % 7.9 % (0.0-11.0); NEUTROPHIL # 9.4 10^3/ul (1.6-7.5); NEUTROPHILS % 81.1 % (39.0-77.0); PLATELET COUNT 364 10^3/UL (140-415); RED BLOOD COUNT 3.14 10^6/ul (4.70-6.10)
[2017-11-05 06:54] LABS: ANION GAP 14 (8-16); BLOOD UREA NITROGEN 61 mg/dl (7-20); CALCIUM 8.5 mg/dl (8.4-10.2); CARBON DIOXIDE 30 mmol/L (21-31); CHLORIDE 103 mmol/L (97-110); CREATININE 4.69 mg/dl (0.61-1.24); GLUCOSE 202 mg/dl (70-220); POTASSIUM 3.7 mmol/L (3.5-5.1); SODIUM 143 mmol/L (135-144)
[2017-11-05] MEDS: HEPARIN 25000 UNITS/250 ML 250 ML IV (07:51)
[2017-11-05] MEDS: ACETAMINOPHEN 650MG/20.3ML CUP NGT (08:54)
[2017-11-05] MEDS: FAMOTIDINE 20 MG INJ IV (08:54)
[2017-11-05] MEDS: ASPIRIN 81 MG TAB NGT (08:54)
[2017-11-05] MEDS: NIFEdipine (XL) 60 MG TAB PO (09:00)
[2017-11-05] MEDS: NIFEdipine 10 MG CAP NGT ×3 (10:30→16:55)
[2017-11-05 14:50] LABS: PARTIAL THROMBOPLASTIN TIME 91.4 Sec (25.0-35.0)
[2017-11-05] MEDS: CEFEPIME 1GM/50 ML (PMX) 50 ML IVPB (16:54)
== END 2017-11-05 18:20 | disposition short-term general hospital (02) | DRG 296 ==
LOC: E/R 13:10 → ICU 15:02
PROC: 5A1955Z Respiratory Ventilation, Greater than 96 Consecutive Hours (ICD-10-PCS; principal; 2017-10-28)
PROC: 0BH17EZ Insertion of Endotracheal Airway into Trachea, Via Natural or Artificial Opening (ICD-10-PCS; 2017-10-28)
PROC: 5A12012 Performance of Cardiac Output, Single, Manual (ICD-10-PCS; 2017-10-28)
PROC: 5A1D70Z Performance of Urinary Filtration, Intermittent, Less than 6 Hours Per Day (ICD-10-PCS; 2017-10-28)
DX: I46.9 Cardiac arrest, cause unspecified (principal); N18.6 End stage renal disease; I50.43 Acute on chronic combined systolic (congestive) and diastolic (congestive) heart failure; J96.01 Acute respiratory failure with hypoxia; K72.00 Acute and subacute hepatic failure without coma; J69.0 Pneumonitis due to inhalation of food and vomit; I63.9 Cerebral infarction, unspecified; G93.49 Other encephalopathy; I13.2 Hypertensive heart and chronic kidney disease with heart failure and with stage 5 chronic kidney disease, or end stage renal disease; G93.1 Anoxic brain damage, not elsewhere classified; I42.9 Cardiomyopathy, unspecified; I82.621 Acute embolism and thrombosis of deep veins of right upper extremity; I16.0 Hypertensive urgency; D75.82 Heparin induced thrombocytopenia (HIT); E87.5 Hyperkalemia; E11.22 Type 2 diabetes mellitus with diabetic chronic kidney disease; E83.52 Hypercalcemia; E78.5 Hyperlipidemia, unspecified; R13.10 Dysphagia, unspecified; Z99.2 Dependence on renal dialysis; Z79.84 Long term (current) use of oral hypoglycemic drugs
CPT/HCPCS: 31500; 36600; 70450; 70553; 71045; 74018; 76705; 76942; 80048; 80053; 80076; 80307; 81001; 82550; 82553; 82803; 82962; 83690; 83735; 84100; 84484; 85025; 85610; 85730; 87081; 87086; 87340; 90935; 92950; 93005; 93306; 93308; 93880; 93971; 94002; 94003; 94770; 95819; 96365; 96375; 99291-25